=== PATIENT | male | born 1970 | race African-American/Black ===

== ENCOUNTER 2020-02-10 20:26 | Emergency (ER) | payer OTHER ==
[2020-02-10 21:31] VITALS: BMI 29.0
[2020-02-10] MEDS ORDERED: KETOROLAC TROMETHAMINE 15 MG/ML VIAL IM ONE (22:20)
[2020-02-10] MEDS ORDERED: IBUPROFEN 600 MG TABLET (FP) PO ONE ×3 (23:00→23:13)
[2020-02-10] MEDS ORDERED: IBUPROFEN 400 MG TABLET (FP) PO ONE (23:12)
[2020-02-11 00:31] VITALS: BP 142/78; PULSE 68; TEMP 97.8
== END 2020-02-11 00:39 | disposition home or self-care (01) ==
LOC: JER 20:26
PROC: 3E0233Z Introduction of Anti-inflammatory into Muscle, Percutaneous Approach (ICD-10-PCS; principal; 2020-02-10)
DX: M54.2 Cervicalgia (principal); V89.2XXA Person injured in unspecified motor-vehicle accident, traffic, initial encounter
CPT/HCPCS: 72125-TC; 99284-25

== ENCOUNTER 2023-07-13 03:55 | Emergency (ER) | payer OTHER ==
[2023-07-13 04:01] VITALS: BMI 29.0
[2023-07-13] MEDS ORDERED: ONDANSETRON 4 MG/2 ML VIAL ONE (04:17)
[2023-07-13] MEDS: ONDANSETRON 4 MG/2 ML VIAL IVPUSH ONE (04:28)
[2023-07-13 04:37] LABS: BASO % 1.1 % (0-2.0); EOS % 6.1 % (0-4.5); HEMATOCRIT 37.6 % (35.4-49); HEMOGLOBIN 13.1 GM/dL (11.7-16.9); LYMPH % 40.7 % (8-40); MCH 30.9 pg (25.7-33.7); MCHC 34.7 g/dl (32.0-35.9); MEAN CELL VOLUME 89.1 fl (80-96); MEAN PLT VOLUME 8.7 fl (7.5-11.1); MONO % 6.8 % (3.8-10.2); NEUT % 45.3 % (42.8-82.8); PLATELET COUNT 192 10^3/uL (134-434); RBC 4.22 M/mm3 (4.00-5.60); RDW 14.2 % (11.9-15.9); WHITE BLOOD COUNT 6.4 K/mm3 (4.0-10.0)
[2023-07-13 04:57] LABS: POTASSIUM 3.6 mmol/L (3.5-5.1)
[2023-07-13 04:59] LABS: ALBUMIN 3.8 g/dl (3.4-5.0); BLOOD UREA NITROGEN 22.2 mg/dL (7-18); CALCIUM 9.3 mg/dL (8.5-10.1)
[2023-07-13] MEDS ORDERED: TRANEXAMIC ACID 1000 MG/10 ML VIAL ONE ×2 (04:59→05:02)
[2023-07-13 05:02] LABS: CREATININE 1.3 mg/dL (0.55-1.3)
[2023-07-13] MEDS: TRANEXAMIC ACID 1000 MG/10 ML VIAL IVPUSH ONE ×2 (05:03→05:25)
[2023-07-13 05:04] LABS: BILIRUBIN,TOTAL 0.6 mg/dL (0.2-1); TOT PROT 7.4 g/dl (6.4-8.2)
[2023-07-13 05:05] LABS: INR 0.98 (0.83-1.09); PROTHROMBIN TIME (PATIENT) 11.3 SEC (9.7-13.0)
[2023-07-13 05:07] LABS: ACTIVATED PTT 32.6 SECONDS (25.2-36.5)
[2023-07-13] MEDS: OXYMETAZOLINE 0.05% NASAL SOLUTION 15 ML BOTTLE NS ONE (05:25)
[2023-07-13 06:36] VITALS: BP 129/70; PULSE 72; RESP 18; TEMP 98.2
== END 2023-07-13 06:57 | disposition left against medical advice (07) ==
LOC: JER 03:55
PROC: 3E033GC Introduction of Other Therapeutic Substance into Peripheral Vein, Percutaneous Approach (ICD-10-PCS; principal; 2023-07-13)
PROC: 3E033GC Introduction of Other Therapeutic Substance into Peripheral Vein, Percutaneous Approach (ICD-10-PCS; 2023-07-13)
PROC: 3E033GC Introduction of Other Therapeutic Substance into Peripheral Vein, Percutaneous Approach (ICD-10-PCS; 2023-07-13)
DX: R04.0 Epistaxis (principal)
CPT/HCPCS: 36415; 80053; 85025; 85610; 85730; 86850; 86900; 86901; 99284-25

== ENCOUNTER 2024-04-13 13:21 | Emergency (ER) | payer OTHER ==
[2024-04-13 14:02] VITALS: PULSE 68; RESP 19; TEMP 97.7; BMI 24.3
[2024-04-13 14:50] LABS: URINE APPEARANCE CLEAR; URINE BILIRUBIN NEGATIVE (NEGATIVE); URINE COLOR YELLOW; URINE GLUCOSE (UA) NEGATIVE (NEGATIVE); URINE KETONE TRACE (NEGATIVE); URINE LEUK ESTERASE NEGATIVE (NEGATIVE); URINE NITRITE NEGATIVE (NEGATIVE); URINE PROTEIN TRACE (NEGATIVE); URINE UROBILINOGEN 0.2 mg/dL (0.2-1.0)
[2024-04-13 15:08] LABS: POTASSIUM 4.2 mmol/L (3.5-5.1)
[2024-04-13 15:10] LABS: BASO % 0.8 % (0-2.0); EOS % 2.2 % (0-4.5); HEMATOCRIT 40.4 % (35.4-49); HEMOGLOBIN 13.8 GM/dL (11.7-16.9); LYMPH % 38.1 % (8-40); MCH 30.6 pg (25.7-33.7); MCHC 34.3 g/dl (32.0-35.9); MEAN CELL VOLUME 89.4 fl (80-96); MEAN PLT VOLUME 8.7 fl (7.5-11.1); MONO % 8.4 % (3.8-10.2); NEUT % 50.5 % (42.8-82.8); PLATELET COUNT 177 10^3/uL (134-434); RBC 4.51 M/mm3 (4.00-5.60); RDW 14.1 % (11.9-15.9); WHITE BLOOD COUNT 5.5 K/mm3 (4.0-10.0)
[2024-04-13 15:13] LABS: BLOOD UREA NITROGEN 18.5 mg/dL (7-18); CALCIUM 9.5 mg/dL (8.5-10.1)
[2024-04-13 15:14] LABS: ALBUMIN 4.2 g/dl (3.4-5.0); MAGNESIUM 2.3 mg/dL (1.8-2.4)
[2024-04-13 15:17] LABS: PHOSPHOROUS 3.6 mg/dL (2.5-4.9)
[2024-04-13 15:18] LABS: BILIRUBIN,TOTAL 1.5 mg/dL (0.2-1); TOT PROT 7.7 g/dl (6.4-8.2)
[2024-04-13 15:39] LABS: CREATININE 1.2 mg/dL (0.55-1.3)
[2024-04-13 16:22] LABS: URINE BARBITURATES NEGATIVE (NEGATIVE)
[2024-04-13 16:23] LABS: COCAINE, UR NEGATIVE (NEGATIVE); METHADONE, UR NEGATIVE (NEGATIVE); PHENCYCLIDINE,URINE NEGATIVE (NEGATIVE); URINE AMPHETAMINES NEGATIVE (NEGATIVE); URINE BENZODIAZEPINES NEGATIVE (NEGATIVE)
[2024-04-13 16:40] LABS: OPIATES, URI NEGATIVE (NEGATIVE)
[2024-04-13 19:23] VITALS: BP 130/80
== END 2024-04-13 18:30 | disposition home or self-care (01) ==
LOC: JER 13:21
DX: R45.1 Restlessness and agitation (principal); R93.5 Abnormal findings on diagnostic imaging of other abdominal regions, including retroperitoneum
CPT/HCPCS: 36415; 71045-TC-FY; 76705-TC; 80053; 80307; 81003; 82962; 83735; 84100; 84484; 85025; 87086; 93005; 93010; 99285-25